=== PATIENT | female | born 1960 | race Caucasian/White ===

== ENCOUNTER → 2021-05-01 | Outpatient (CLI) | payer BC ==
[~2021-05-01] MED LIST: PROTONIX40 M1 PO; TORADOL 10 MG T10 MG PO; ZOFRAN ODT 4 MG4 MG SL; ZOFRAN4 MG PO
== END ==
LOC: KOH-I 10:40
DX: R05.9 Cough, unspecified (principal)
CPT/HCPCS: 71046

== ENCOUNTER → 2021-05-28 | Outpatient (CLI) | payer BC | LOC: HEART 5 08:50 | DX: Z53.9 Procedure and treatment not carried out, unspecified reason (principal) | CPT/HCPCS: 78452; 93017; A9502 ==

== ENCOUNTER → 2021-08-29 | Outpatient (CLI) | payer BC | LOC: MAMO 08-23 11:30 | DX: Z12.31 Encounter for screening mammogram for malignant neoplasm of breast (principal); R92.8 Other abnormal and inconclusive findings on diagnostic imaging of breast | CPT/HCPCS: 77063; 77067 ==

== ENCOUNTER 2021-12-09 23:31 | Emergency (ER) | payer OTHER ==
[2021-12-10 02:52] LABS: HEMOGLOBIN 13.7 gm/dl (12.3-15.3); RED BLOOD COUNT 4.63 M/UL (4.00-5.10); WHITE BLOOD COUNT 8.3 K/UL (4.5-11.0)
[2021-12-10 03:13] LABS: BUN/CREATININE RATIO 11 (0-10)
== END 2021-12-10 04:40 | disposition home or self-care (01) ==
LOC: ER1 23:31
PROVIDERS: Family Medicine
DX: R53.83 Other fatigue (principal); Z90.49 Acquired absence of other specified parts of digestive tract
CPT/HCPCS: 71046; 80053; 81001; 82550; 82553; 84484; 85025; 93005; 99284

== ENCOUNTER → 2022-01-04 | Outpatient (CLI) | payer OTHER | LOC: CT 11:56 | DX: R19.7 Diarrhea, unspecified (principal); R63.4 Abnormal weight loss; R10.9 Unspecified abdominal pain; Z90.49 Acquired absence of other specified parts of digestive tract | CPT/HCPCS: Q9967 ==